=== PATIENT | male | born 1965 | race Caucasian/White ===

== ENCOUNTER → 2021-06-26 14:06 | Outpatient (BNVA) | payer MEDICARE, SELFPAY | PROVIDERS: Visit Provider Family Medicine | DX: Z13.220 Encounter for screening for lipoid disorders (principal); Z13.6 Encounter for screening for cardiovascular disorders; I10 Essential (primary) hypertension; E11.40 Type 2 diabetes mellitus with diabetic neuropathy, unspecified; F32.A Depression, unspecified | CPT/HCPCS: 80053; 80061; 83036 ==

== ENCOUNTER → 2021-12-27 08:59 | Outpatient (BNVA) | payer MEDICARE, SELFPAY | PROVIDERS: PCP Family Medicine; Visit Provider Family Medicine | DX: Z00.00 Encounter for general adult medical examination without abnormal findings (principal); Z71.89 Other specified counseling; I10 Essential (primary) hypertension; E11.42 Type 2 diabetes mellitus with diabetic polyneuropathy; Z79.4 Long term (current) use of insulin; F33.0 Major depressive disorder, recurrent, mild | CPT/HCPCS: 80053; 83036 ==

== ENCOUNTER → 2022-06-27 09:15 | Outpatient (BNVA) | payer MEDICARE, SELFPAY | PROVIDERS: PCP Family Medicine; Visit Provider Family Medicine | DX: E11.42 Type 2 diabetes mellitus with diabetic polyneuropathy (principal); I10 Essential (primary) hypertension; Z79.4 Long term (current) use of insulin; Z13.220 Encounter for screening for lipoid disorders; Z13.6 Encounter for screening for cardiovascular disorders | CPT/HCPCS: 80053; 80061; 83036 ==

== ENCOUNTER → 2022-12-25 08:58 | Outpatient (BNVA) | payer MEDICARE, SELFPAY | PROVIDERS: PCP Family Medicine; Visit Provider Family Medicine | DX: E11.42 Type 2 diabetes mellitus with diabetic polyneuropathy (principal); Z79.4 Long term (current) use of insulin; I10 Essential (primary) hypertension | CPT/HCPCS: 80053; 83036 ==

== ENCOUNTER → 2023-05-27 08:51 | Outpatient (BNVA) | payer MEDICARE, SELFPAY | PROVIDERS: PCP Family Medicine; Visit Provider Family Medicine | DX: E11.9 Type 2 diabetes mellitus without complications (principal); I10 Essential (primary) hypertension; M62.830 Muscle spasm of back; E11.42 Type 2 diabetes mellitus with diabetic polyneuropathy; Z79.4 Long term (current) use of insulin; Z12.5 Encounter for screening for malignant neoplasm of prostate; F33.0 Major depressive disorder, recurrent, mild | CPT/HCPCS: 80053; 80061; 83036; G0103 ==

== ENCOUNTER → 2023-11-25 08:46 | Outpatient (BNVA) | payer MEDICARE, SELFPAY | PROVIDERS: PCP Family Medicine; Visit Provider Family Medicine | DX: I10 Essential (primary) hypertension (principal); E11.42 Type 2 diabetes mellitus with diabetic polyneuropathy; Z79.4 Long term (current) use of insulin | CPT/HCPCS: 80053; 83036 ==

== ENCOUNTER → 2024-05-13 09:00 | Outpatient (BNVA) | payer MEDICARE, SELFPAY | PROVIDERS: PCP Family Medicine; Visit Provider Family Medicine | DX: E11.42 Type 2 diabetes mellitus with diabetic polyneuropathy (principal); I10 Essential (primary) hypertension; Z79.4 Long term (current) use of insulin; Z12.5 Encounter for screening for malignant neoplasm of prostate | CPT/HCPCS: 80053; 80061; G0103 ==

== ENCOUNTER → 2024-07-02 09:54 | Outpatient (BNVA) | payer MEDICARE, SELFPAY | PROVIDERS: PCP Family Medicine; Visit Provider Student in an Organized Health Care Education/Training Program | DX: Z12.11 Encounter for screening for malignant neoplasm of colon (principal) | CPT/HCPCS: 99024; 99204 ==

== ENCOUNTER 2024-09-15 10:04 | Day surgery (SDC) | payer MEDICARE, SELFPAY ==
[2024-09-15 10:34] VITALS: BP 120/70; PULSE 112; RESP 18; TEMP 36.5; O2SAT 98; BMI 21.5
--- NOTE | 2024-09-15 10:39 | W.PM.OPSFHP ---
Same Day Surgery H&P Indication for Procedure/HPI DATE OF PROCEDURE: September 15, 2024 CHIEF COMPLAINT/INDICATIONFOR SURGICAL PROCEDURE: diagnostic colonoscopy PREOP DIAGNOSIS: diagnostic colonoscopy PLANNED PROCEDURE: Operation Date: 09/15/24 11:30 Proposed Procedures p Colonoscopy - 00974, G0105, Z12.11(Not Applicable) - Jaquan Rashid MD Medications/Allergies* Home Medications Medication Instructions Recorded Confirmed Type risperidone 2 mg tablet 2 mg PO DAILY PRN Restless Leg(S) 09/10/24 09/10/24 History risperidone 4 mg tablet 4 mg PO BEDTIME 09/10/24 09/10/24 History Allergies/Adverse Reactions Allergy/AdvReac Type Severity Reaction Status Date / Time No Known Allergies Allergy Verified 09/15/24 10:32 Pertinent History/Comorbid Conditions* Medical History (Updated 05/13/24 @ 15:17 by Nuzhat Bacon MD) Hypertension Type 2 diabetes mellitus failed oral in past Diabetic neuropathy Depression Surgical History (Updated 06/26/21 @ 14:05 by Nuzhat Bacon MD) History of lung surgery drain tube placement 2017 Family History (Updated 07/02/24 @ 10:05 by LAURYN Paz) Heart disease Father Social History Smoking and tobacco/nicotine status: current every day tobacco/nicotine user cigarettes Packs smoked per day: 1 Quit status (tobacco/nicotine): considering quitting Pertinent Exam Findings alert, oriented x 3, clear to auscultation bilaterally, regular rate & rhythm and procedure specific exam findings abdomen soft, nt, nd Recommendations Surgery/Procedure today Coding Level of Care Code Acute Code for Chg Fwd
[2024-09-15] MEDS: sodium chloride 0.9% 500 ML 15 ML IV (10:43)
[2024-09-15 11:01] LABS: Glucose Point of Care 324 mg/dL (70-110)
[2024-09-15] MEDS: insulin regular-human 100 units/1 mL 10 UNIT IVP (11:29)
--- NOTE | 2024-09-15 11:33 | ANES.PREANE2 ---
Pre-Anesthetic Assessment Height/Weight: Height 5 ft 10 in Weight 150 lb Temp Pulse Resp BP Pulse Ox O2 Del Method 97.7 F 112 H 18 120/70 98 Room Air 09/15/24 10:34 09/15/24 10:34 09/15/24 10:34 09/15/24 10:34 09/15/24 10:34 09/15/24 10:34 Preop Diagnosis: diagnostic colonoscopy Operation Date: 09/15/24 11:30 Proposed Procedures p Colonoscopy - 99364, G0105, Z12.11(Not Applicable) - Jaquan Rashid MD Was Beta Luis taken within 24 hours: N/A Was Clonidine taken within 24 hours: N/A Social Tobacco and No alcohol Exam alert, oriented x 3 and regular rate & rhythm Decreased breath sounds bilaterally Airway Submandibular: within normal limits Cervical ROM: within normal limits Mallampati: Class II Dentition: full Anesthetic Plan ASA status: 3 Anesthesia: MAC Other: No prior issues with anesthesia Completed bowel prep History of diabetes, on insulin. Preop BS 324. Will give 10 units of regular insulin History of hypertension on lisinopril and metoprolol Patient takes risperidone at bedtime Patient is able to perform ADLs Plan for MAC anesthetic Medications/Allergies Home Medications Medication Instructions Recorded Confirmed Last Taken Type blood-glucose meter #1 ea 04/20/24 07/02/24 09/14/24 Rx bupropion HCl 300 mg 24 hr tablet, 300 mg PO QAM 30 days #30 tabs 05/13/24 09/10/24 09/14/24 Rx extended release gabapentin 400 mg capsule 400 mg PO TID 30 days #90 caps 05/13/24 09/10/24 09/14/24 Rx insulin glargine 100 unit/mL (3 32 unit (0.32 mL) SUBCUT DAILY #15 05/13/24 09/10/24 09/14/24 Rx mL) subcutaneous pen (Lantus mL Solostar U-100 Insulin) lisinopril 40 mg tablet 40 mg PO DAILY 30 days #30 tabs 05/13/24 09/10/24 09/14/24 Rx metoprolol succinate 100 mg 100 mg PO DAILY 30 days #30 tabs 05/13/24 09/15/24 09/15/24 07:00 Rx tablet,extended release 24 hr tizanidine 2 mg tablet 2 mg PO Q8H PRN muscle spasticity 05/13/24 09/10/24 09/14/24 Rx #30 tabs albuterol sulfate 90 mcg/actuation 2 puff inhalation QID PRN 06/18/24 09/10/24 09/14/24 Rx aerosol inhaler shortness of breath or wheezing 30 days #18 grams pen needle, diabetic 32 gauge x #1,200 ea 08/28/24 09/14/24 Rx (Easy Comfort Pen [place]) risperidone 2 mg tablet 2 mg PO DAILY PRN Restless Leg(S) 09/10/24 09/10/24 09/14/24 History risperidone 4 mg tablet 4 mg PO BEDTIME 09/10/24 09/10/24 09/14/24 History Allergies Allergy/AdvReac Type Severity Reaction Status Date / Time No Known Allergies Allergy Verified 09/15/24 10:32 Current Medications Generic Name Dose Route Start Last Admin Trade Name Freq PRN Reason Stop Dose Admin Sodium Chloride 500 mls @ 15 mls/hr 09/15/24 10:27 09/15/24 10:43 Sodium Chloride 0.9% IV 09/16/24 10:26 15 mls/hr .Q24H PRN Administration COLONOSCOPY FLUIDS PFSH Anesthesia Medical History Hypertension Type 2 diabetes mellitus failed oral in past Diabetic neuropathy Depression Surgical History History of lung surgery drain tube placement 2016 Family History (Updated 07/02/24 @ 10:05 by LAURYN Paz) Father Heart disease Social History Smoking and tobacco/nicotine status: current every day tobacco/nicotine user cigarettes Packs smoked per day: 1 Quit status (tobacco/nicotine): considering quitting Data Anesthesia Cardiac Studies: No Data to Display
[2024-09-15 12:08] LABS: Glucose Point of Care 227 mg/dL (70-110)
[2024-09-15 12:24] VITALS: BP 104/73; PULSE 87; RESP 14; TEMP 36.3; O2SAT 98
[2024-09-15 12:30] VITALS: BP 111/71; PULSE 86; RESP 14; O2SAT 93
[2024-09-15 12:40] VITALS: BP 119/75; PULSE 84; RESP 14; O2SAT 94
--- NOTE | 2024-09-15 13:06 | ANE.PACU2 ---
Inpatient post-anesthesia follow up: Airway intact: Yes Vital signs: Temperature 97.4 F Pulse Rate 84 Respiratory Rate 14 Blood Pressure 119/75 Pulse Oximetry 94 Oxygen Delivery Me thod Room Air Oxygen Flow Rate Fraction of Inspir ed Oxygen Hydration adequate: Yes Nausea and vomiting: No Pain level: 1 Mental status: Baseline
[2024-09-16 06:09] LABS: Glucose Point of Care 129 mg/dL (70-110)
== END 2024-09-15 13:06 | disposition home or self-care (01) ==
PROVIDERS: PCP Family Medicine; Visit Provider Student in an Organized Health Care Education/Training Program
PROC: 0DJD8ZZ Inspection of Lower Intestinal Tract, Via Natural or Artificial Opening Endoscopic (ICD-10-PCS; CPT 45378; principal; 2024-09-15 11:30)
DX: R19.5 Other fecal abnormalities (principal); E11.42 Type 2 diabetes mellitus with diabetic polyneuropathy; Z79.4 Long term (current) use of insulin; I10 Essential (primary) hypertension; F32.A Depression, unspecified; F17.210 Nicotine dependence, cigarettes, uncomplicated
CPT/HCPCS: 36416; 45378; 82962; J1815; J2405; J2704; J3490; J7040

== ENCOUNTER → 2024-10-27 08:56 | Outpatient (BNVA) | payer MEDICARE, SELFPAY | PROVIDERS: PCP Family Medicine; Visit Provider Family Medicine | DX: E11.42 Type 2 diabetes mellitus with diabetic polyneuropathy (principal); Z79.4 Long term (current) use of insulin; E11.9 Type 2 diabetes mellitus without complications | CPT/HCPCS: 80048; 83036 ==

== ENCOUNTER 2025-01-27 07:49 | Outpatient (CLI) | payer MEDICARE, SELFPAY ==
--- NOTE | 2025-01-27 07:59 | FL_ITS ---
WS: [id number] FL barium enema w air* [id number] REASON FOR EXAM: INCOMPLETE COLONOSCOPY FLUOROSCOPY TIME: 8min [id number] # OF SPOT FILMS: Multiple TECHNIQUE: After reviewing patient history and records, air-contrast barium enema was not indicated. There was concern for constriction/partial obstruction, incomplete colonoscopy. It was more likely a solid colon barium enema would visualize the entire colon and define constriction or obstruction. Contrast was instilled per rectum with multiple spot films during the colonic filling. After the colon was filled multiple spot films with compression were obtained. All sections of the colon were palpated under fluoroscopy. FINDINGS: Patient had moderately redundant sigmoid colon and episodes of spasm. No constricting intrinsic or extrinsic lesion of the colon was identified. There is no significant diverticular disease with colonic narrowing. No mucosal abnormality or intraluminal mass was identified. Ileocecal valve and visualized small bowel were normal. FL/FL barium enema w air* [id number] IMPRESSION: No significant abnormality as above.
== END 2025-01-27 07:50 | disposition home or self-care (01) ==
PROVIDERS: PCP Family Medicine; Visit Provider Student in an Organized Health Care Education/Training Program
DX: Z12.11 Encounter for screening for malignant neoplasm of colon (principal); R93.89 Abnormal findings on diagnostic imaging of other specified body structures
CPT/HCPCS: 74280

== ENCOUNTER → 2025-01-28 09:08 | Outpatient (BNVA) | payer MEDICARE, SELFPAY | PROVIDERS: PCP Family Medicine; Visit Provider Family Medicine | DX: E11.42 Type 2 diabetes mellitus with diabetic polyneuropathy (principal); R41.3 Other amnesia; R53.83 Other fatigue; Z79.4 Long term (current) use of insulin | CPT/HCPCS: 82607; 82746; 83036; 84443 ==

== ENCOUNTER → 2025-04-12 09:04 | Outpatient (BNVA) | payer MEDICARE, SELFPAY | PROVIDERS: PCP Family Medicine; Visit Provider Family Medicine | DX: Z12.5 Encounter for screening for malignant neoplasm of prostate (principal); I10 Essential (primary) hypertension; E11.42 Type 2 diabetes mellitus with diabetic polyneuropathy; Z79.4 Long term (current) use of insulin | CPT/HCPCS: 80053; 80061; 83036; G0103 ==

== ENCOUNTER 2025-06-29 17:40 | Inpatient (IN) | payer MEDICARE, SELFPAY ==
[2025-06-29] VITALS (7 sets, daily range): BP systolic 93–139; BP diastolic 54–74; PULSE 94–103; RESP 16–17; TEMP 36.4–36.8; O2SAT 93–98; BMI 21.5
--- OUTSIDE RECORDS SUMMARY | 2025-06-29 17:43 | XMS_ITS | Clinical Summary ---
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 Name Role Phone Unavailable Primary Care Provider Unavailabl e Social History Tobacco Use Types Packs/Day Years Used Date Smoking Tobacco: Never Assessed Sex and Gender Information Value Date Recorded Sex Assigned at Not on file Legal Sex Male 6:23 PM CDT Gender Identity Not on file Sexual Orientation Not on file Plan of Treatment Health Maintenance Due Date Last Done Comments DTAP/TDAP/TD VACCINES (1 - Tdap) 1982 COLORECTAL SCREENING 2008 Colorectal Cancer Screening 2008 FIT-DNA Q 3 years 2008 FIT/FOBT Q 1 year 2008 Flex Sig/CT Colonography Q 5 years 2008 ZOSTER VACCINE (1 of 2) 2013 INFLUENZA VACCINE (#1) 2025 RSV VACCINE (60+ or ) (1 - 1-dose 75+ series) 2038
[2025-06-29 18:55] LABS: Hematocrit 43.0 % (37-53); Hemoglobin 15.50 g/dL (11.27-16.99); Mean Corpuscular HGB Conc 36.0 g/dL (30-55); Mean Corpuscular Hemoglobin 32.0 pg (27-33); Mean Corpuscular Volume 88.7 fl (82-101); Nucleated Red Blood Cells % 0 %; Platelet Count 252 10^3/cmm (157-399); Red Blood Count 4.85 10^6/uL (3.85-5.65); White Blood Count 12.94 10^3/uL (3.29-11.43)
[2025-06-29 19:15] LABS: Alanine Aminotransferase 19 U/L (0-41); Albumin Level 4.7 g/dL (3.5-5.2); Alkaline Phosphatase 81 U/L (40-130); Anion Gap 21.1 (5-19); Aspartate Amino Transferase 21 U/L (0-40); Blood Urea Nitrogen 69 mg/dL (8-23); Calcium 10.4 mg/dL (8.5-10.5); Carbon Dioxide 27 mmol/L (22-29); Chloride 89 mmol/L (98-107); Creatinine Clr Calc Pharmacy 15.4600; Globulin 3.3 g/dL (1.3-4.6); Glucose 160 mg/dL (65-115); Lactic Sepsis W/Reflex 1.6 mmol/L (0.5-2.2); Osmolality Calculated 300 mOsm/kg (285-295); Potassium 4.1 mmol/L (3.5-5.1); Sodium 133 mmol/L (136-145); Total Protein 8.0 g/dL (6.6-8.7)
--- NOTE | 2025-06-29 19:27 | ED_ITS ---
HPI - Male Genitourinary 2 General: Chief complaint: Urogenital-Male Stated complaint: trouble urinating Time Seen by Provider: 06/29/25 19:24 History of Present Illness: 60-year-old male with history of type 2 diabetes, depression, diabetic neuropathy, hypertension and chronic bronchitis who presents to the emergency room with difficulty urinating and low blood pressures. He was actually told to come by clinic I find out later. He had lab work and that showed an acute renal insufficiency. He reports that he had some nausea and vomiting a couple of days ago. He then had to take some laxative which caused him to have some diarrhea because he thought he was constipated. No abdominal pain. No fevers. No altered mental status. Related Data Home Medications ?Medication ?Instructions ?Recorded ?Confirmed risperidone 2 mg tablet 2 mg PO DAILY PRN Restless L eg(S) 09/10/24 06/29/25 risperidone 4 mg tablet 4 mg PO BEDTIME 09/10/2412/18 Previous Rx's ?Medication ?Instructions ?Recorded blood-glucose meter #1 ea 04/20/24 pen needle, diabetic 32 gauge x #1,200 ea 08/28/24 (Easy Comfort Pen [place]) blood-glucose meter #1 ea 11/19/24 magnesium citrate 296 ml PO ONCE constipation 1 day 01/25/25 #296 mL lancets 30 gauge (Droplet Lancets) #100 ea 03/24/25 blood sugar diagnostic (OneTouch #100 strips 03/29/25 Ultra Test strips) albuterol sulfate 90 mcg/actuation 2 puff inhalation Q ID PRN 04/12/25 aerosol inhaler shortness of breath or wheez ing 30 days #18 grams bupropion HCl 300 mg 24 hr tablet, 300 mg PO QAM 30 da ys #30 tabs 04/12/25 extended release gabapentin 400 mg capsule 400 mg PO TID 30 days #90 ca ps 04/12/25 insulin glargine 100 unit/mL (3 40 unit (0.4 mL) SUBCU T DAILY #15 04/12/25 mL) subcutaneous pen (Lantus mL Solostar U-100 Insulin) lisinopril 40 mg tablet 40 mg PO DAILY 30 days #30 t abs 04/12/25 metoprolol succinate 100 mg 100 mg PO DAILY 30 days #3 0 tabs 04/12/25 tablet,extended release 24 hr tizanidine 2 mg tablet See Rx Instructions .Route 0 04/12/25 .COMPLEX #30 tabs Allergies Allergy/AdvReac Type Severity Reaction Status Date / Time No Known Allergies Allergy Verified 06/29/25 17:58 Review of Systems 2 Narrative: Constitutional symptoms: Negative except as documented in HPI. Skin symptoms: Negative except as documented in HPI. Eye symptoms: Negative except as documented in HPI. ENMT symptoms: Negative except as documented in HPI. Respiratory symptoms: Negative except as documented in HPI. Cardiovascular symptoms: Negative except as documented in HPI. Gastrointestinal symptoms: Negative except as documented in HPI. Genitourinary symptoms: Negative except as documented in HPI. Musculoskeletal symptoms: Negative except as documented in HPI. Neurologic symptoms: Negative except as documented in HPI. Psychiatric symptoms: Negative except as documented in HPI. Endocrine symptoms: Negative except as documented in HPI. PFS ED 2 PFSH: Medical History (Updated 06/29/25 @ 20:05 by Latricia Augustine MD) Hypertension Type 2 diabetes mellitus failed oral in past Diabetic neuropathy Depression Surgical History History of lung surgery drain tube placement 2017 Family History Father Heart disease Social History Smoking and tobacco/nicotine status: current every day tobacco/nicotine user cigarettes Packs smoked per day: 1 Quit status (tobacco/nicotine): considering quitting Physical Exam 2 Narrative: EXAM NARRATIVE: General: Alert, no acute distress. Skin: Warm, dry. Head: Normocephalic, atraumatic. Neck: Supple, trachea midline. Eye: Extraocular movements are intact. Ears, nose, mouth and throat: Tacky oral mucosa Cardiovascular: Regular, Normal peripheral perfusion. Respiratory: Lungs are clear to auscultation, respirations are non-labored, breath sounds are equal, Symmetrical chest wall expansion. Gastrointestinal: Soft, Nontender, Non distended Musculoskeletal: Normal ROM, no deformity. Neurological: Alert and oriented, No focal neurological deficit observed. Psychiatric: Cooperative, appropriate mood & affect. Course 2 Vital Signs: Vital signs: Vital Signs Temperature 97.5 F L 06/29/25 17:55 Pulse Rate 94 06/29/25 20:03 Respiratory Rate 17 06/29/25 17:55 Blood Pressure 114/74 06/29/25 20:03 Pulse Oximetry 97 06/29/25 20:03 Oxygen Delivery Me thod Room Air 06/29/25 20:03 MDM - Male Medical Decision Making Medical decision making: Patient's reason for coming to the emergency room Social determinants: Patient is retired and . I reviewed the patient's medical record. Patient had a visit to a clinic earlier today lab work was done at that time. Was then told to come to the emergency room. 60-year-old male with history of type 2 diabetes, depression, diabetic neuropathy, hypertension and chronic bronchitis I reviewed the patient's current home meds Patient is on insulin for his diabetes. Metoprolol for blood pressure. He is on lisinopril. Alternate historians: is present and does give some history as well. Differential diagnosis for patient presenting with generalized weakness including but not limited to and based on the above HPI, review of systems and physical exam: Sepsis. Dehydration. Renal failure. Electrolyte abnormalities. Anemia. Congestive heart failure. Hypotension. Coronary syndrome. Hepatitis. Cirrhosis. Infections such as pneumonia, urinary tract infection, [place] illness, Cellulitis, Viral infections including influenza and Covid-19. Workup: labwork and lab/exam driven imaging ordered to evaluate, rule in and rule out above pathologies. Lab Review: Laboratory results were reviewed and interpreted by myself the emergency room physician. Mild leukocytosis with a white count of 13,000. This is not left shifted however. Lactic acid is negative. Liver enzymes are normal. BUN and creatinine are extremely elevated over his baseline at 69 and 4.9. Glucose is not overtly elevated it is 160. CT of the abdomen pelvis without contrast: This was ordered to rule out obstructive uropathy. This was negative. This was reviewed and interpreted by myself the emergency room physician. I also reviewed the radiology report. Assessment of risk: Level of risk: High risk patient. Diabetes and other multiple risk factors with acute renal failure. Hospitalization considerations: Patient is being admitted to the hospital Reexamination: Patient remained stable. No increased work of breathing. No altered mental status. No focal motor deficits. Consultation: I spoke with Dr. Caruso with the hospital service who agrees to admission. Assessment and plan: Acute renal failure Dehydration Hypotension Weakness ? This may very well all be just from dehydration from may be a gastroenteritis but he has a bit of a white count and is pressures are low. We have not been able to collect a urine thus far as he has not made any so treating empirically for sepsis for now. He needs the fluid anyway. -2.5 L normal saline bolus. Fluid volumes based on ideal body weight. - Rocephin was administered empirically. This can be stopped if his urine proves to not be infected. -Sepsis quality measures. -Lactic acid with a reflex was ordered. -Blood cultures were ordered. ?I reevaluated the patient's volume status after sepsis fluids were given. -I discussed the patient with the hospitalist on-call who is admitting the patient. - Discussed findings and plan with patient. Answered any questions. - All laboratory values were reviewed and interpreted personally by myself, the ER physician - All imaging was reviewed and interpreted personally by myself, the ER physician. - Evaluation and treatment of this problem were appropriate in the emergency setting Critical Care: -I spent a total of 36 minutes of critical care time managing the patient, independent of any other practitioner. -The time involved in the performance of separately reportable procedures was not counted towards critical care time. Lab Data 06/29/25 18:46 06/29/25 18:46 Radiology Impressions Abdomen/Pelvis CT 06/29/25 19:28 IMPRESSION: No acute localized inflammatory abnormalities present abdomen and pelvis Findings of a calcified nodule in the central canal towards the left at T12 causes significant central canal stenosis further workup recommended with dedicated thoracic spine imaging recommended and such as meningioma can not be excluded and warrants further workup to Laboratory Results WBC 12.94 10^3/uL (3.29-11.43) H 06/29/25 18:46 RBC 4.85 10^6/uL (3.85-5.65) 06/29/25 18:46 Hgb 15.50 g/dL (11.27-16.99) 06/29/25 18:46 Hct 43.0 % (37-53) 06/29/25 18:46 MCV 88.7 fl (82-101) 06/29/25 18:46 MCH 32.0 pg (27-33) 06/29/25 18:46 MCHC 36.0 g/dL (30-55) 06/29/25 18:46 RDW 12.2 % (12.1-15.1) 06/29/25 18:46 Plt Count 252 10^3/cmm (157-399) 06/29/25 18:46 MPV 11.5 fL (7.4-10.4) H 06/29/25 18:46 Neut % (Auto) 72.2 % 06/29/25 18:46 Lymph % (Auto) 19.9 % 06/29/25 18:46 [place] % (Auto) 7.1 % 06/29/25 18:46 Eos % (Auto) 0.3 % 06/29/25 18:46 Baso % (Auto) 0.2 % 06/29/25 18:46 Neut # (Auto) 9.35 10^3/uL (1.8-7.7) H 06/29/25 18:46 Lymph # (Auto) 2.6 10^3/uL (0.8-4.8) 06/29/25 18:46 [place] # (Auto) 0.9 10^3/uL (0.2-0.9) 06/29/25 18:46 Eos # (Auto) 0.0 10^3/uL (0.0-0.8) 06/29/25 18:46 Baso # (Auto) 0.0 10^3/uL (0.0-0.1) 06/29/25 18:46 Nucleated RBC % (auto) 0 % 06/29/25 18:46 Nucleated RBCs # 0.0 /100WBC 06/29/25 18:46 Sodium 133 mmol/L (136-145) L 06/29/25 18:46 Potassium 4.1 mmol/L (3.5-5.1) 06/29/25 18:46 Chloride 89 mmol/L (98-107) L 06/29/25 18:46 Carbon Dioxide 27 mmol/L (22-29) 06/29/25 18:46 Anion Gap 21.1 (5-19) H 06/29/25 18:46 BUN 69 mg/dL (8-23) H 06/29/25 18:46 Creatinine 4.9 mg/dL (0.7-1.2) H 06/29/25 18:46 GFR Calculation 12.1 mL/min (90-130) L 06/29/25 18:46 Glucose 160 mg/dL (65-115) H 06/29/25 18:46 Calculated Osmolality 300 mOsm/kg (285-295) H 06/29/25 18:46 Lactic Acid 1.6 mmol/L (0.5-2.2) 06/29/25 18:46 Calcium 10.4 mg/dL (8.5-10.5) 06/29/25 18:46 Total Bilirubin 0.6 mg/dL (0.15-1.2) 06/29/25 18:46 AST 21 U/L (0-40) 06/29/25 18:46 ALT 19 U/L (0-41) 06/29/25 18:46 Alkaline Phosphatase 81 U/L (40-130) 06/29/25 18:46 Total Protein 8.0 g/dL (6.6-8.7) 06/29/25 18:46 Albumin 4.7 g/dL (3.5-5.2) 06/29/25 18:46 Globulin 3.3 g/dL (1.3-4.6) 06/29/25 18:46 All radiology interpretation(s) finalized by discharge Discharge Plan Discharge Patient Disposition: Admitted As Inpatient Admit Provider: Katlin Caruso Clinical Impression: Acute renal failure, Dehydration Condition: Stable Coding Level of Care Code ED [employer] Diagnostic Technician for Talisha Triana
--- NOTE | 2025-06-29 19:28 | CTR_ITS ---
PROCEDURE INFORMATION: Exam: CT Abdomen And Pelvis Without Contrast Exam date and time: 06/29/2025 7:33 PM Age: 60 years old Clinical indication: Condition or disease; Kidney or ureter condition; Other: Renal failure, R/O obstructive uropathy; PT C/O dysuria x few days. PT states that his Dr told him that his kidneys are failing. TECHNIQUE: Imaging protocol: Computed tomography of the abdomen and pelvis without contrast. Radiation optimization: All CT scans at this facility use at least one of these dose optimization techniques: automated exposure control; mA and/or kV adjustment per patient size (includes targeted exams where dose is matched to clinical indication); or iterative reconstruction. COMPARISON: RF FL barium enema w air* [id number] 01/27/2025 8:09 AM RADIATION DOSE METRICS: Total DLP (mGy-cm): 378.77 FINDINGS: Heart: There are findings of mitral annular coronary artery calcification is present Liver: Unremarkable. No mass. Gallbladder and biliary ducts: Unremarkable. No calcified stones. No ductal dilation. Pancreas: Unremarkable. No ductal dilation. Spleen: Unremarkable. No splenomegaly. Adrenal glands: Normal. No mass. Kidneys and ureters: There is no obstructing stone or hydronephrosis Stomach and bowel: Bowel demonstrates no obstruction. There is mild constipation Appendix: Appendix is normal Intraperitoneal space: There is no intra abdominopelvic free air or free fluid present. Vasculature: Unremarkable. No abdominal aortic aneurysm. Lymph nodes: Unremarkable. No enlarged lymph nodes. Urinary bladder: Urinary bladder unremarkable. Reproductive: Unremarkable as visualized. Bones/joints: In the central canal T12 there is demonstration of a calcified nodule measuring 9 mm causes significant central canal stenosis at this level on image 20, further evaluation recommended with dedicated thoracic spine imaging. Soft tissues: Unremarkable. Other findings: There is a right midpole [address]/CT abdomen pelvis wo con [id number] IMPRESSION: No acute localized inflammatory abnormalities present abdomen and pelvis Findings of a calcified nodule in the central canal towards the left at T12 causes significant central canal stenosis further workup recommended with dedicated thoracic spine imaging recommended and such as meningioma can not be excluded and warrants further workup to
[2025-06-29] MEDS: cefTRIAXone 1,000 mg SDV 1000 MG IVP (19:51)
--- NOTE | 2025-06-29 23:56 | PM.HP ---
Providers/Chief Complaint Admitting Physician: Katlin Caruso MD--- admitED before midnight Primary Care Provider: Nuzhat Bacon MD Chief Complaint: trouble urinating History of Present Illness Richard Woodson is a 60 year old male with medical history significant for hypertension hyper lipidemia and diabetes type 2 who had presented to the primary care doctor chemistry proven to be abnormal and patient was referred to the emergency room to be evaluated. Patient presented with a BUN of 69 and creatinine of 4.9. Patient baseline creatinine has been 1. 04/12/2025 patient creatinine was 1. Patient needs gentle hydration to not stick kidney back to health. Patient tells me that he was not drinking enough. In review of patient medication I do not see any diuretics neither did I see any medication that can compromise the kidney. Must keep any medication renal friendly Review of Systems Narrative: System review upon 10 organ review we are significant for urinary system for renal failure. Medications/Allergies Home Medications ?Medication ?Instructions ?Recorded ?Confirmed ?Last Taken ?Type blood-glucose meter #1 ea 04/20/24 06/29/25 09/14/24 Rx pen needle, diabetic 32 gauge x #1,200 ea 08/28/24 06/29/25 09/14/24 Rx 5/32 (Easy Comfort Pen [place]) risperidone 2 mg tablet 2 mg PO DAILY PRN Restless Leg(S) 09/10/24 06/29/25 09/14/24 History risperidone 4 mg tablet 4 mg PO BEDTIME 09/10/24 06/29/25 09/14/24 History blood-glucose meter #1 ea 11/19/24 06/29/25 Unknown Rx magnesium citrate 296 ml PO ONCE constipation 1 day 01/25/25 06/29/25 Unknown Rx #296 mL lancets 30 gauge (Droplet Lancets) #100 ea 03/24/25 06/29/25 Unknown Rx blood sugar diagnostic (OneTouch #100 strips 03/29/25 06/29/25 Unknown Rx Ultra Test strips) albuterol sulfate 90 mcg/actuation 2 puff inhalation QID PRN 04/12/25 06/29/25 Unknown Rx aerosol inhaler shortness of breath or wheezing 30 days #18 grams bupropion HCl 300 mg 24 hr tablet, 300 mg PO QAM 30 days #30 tabs 04/12/25 06/29/25 Unknown Rx extended release gabapentin 400 mg capsule 400 mg PO TID 30 days #90 caps 04/12/25 06/29/25 Unknown Rx insulin glargine 100 unit/mL (3 40 unit (0.4 mL) SUBCUT DAILY #15 04/12/25 06/29/25 Unknown Rx mL) subcutaneous pen (Lantus mL Solostar U-100 Insulin) lisinopril 40 mg tablet 40 mg PO DAILY 30 days #30 tabs 04/12/25 06/29/25 Unknown Rx metoprolol succinate 100 mg 100 mg PO DAILY 30 days #30 tabs 04/12/25 06/29/25 Unknown Rx tablet,extended release 24 hr tizanidine 2 mg tablet See Rx Instructions .Route 04/12/25 06/29/25 Unknown Rx .COMPLEX #30 tabs Allergies Allergy/AdvReac Type Severity Reaction Status Date / Time No Known Allergies Allergy Verified 06/29/25 17:58 PFSH Acute PFSH: Medical History Hypertension Type 2 diabetes mellitus failed oral in past Diabetic neuropathy Depression Surgical History History of lung surgery drain tube placement 2017 Family History Father Heart disease Social History Smoking and tobacco/nicotine status: current every day tobacco/nicotine user cigarettes Packs smoked per day: 1 Quit status (tobacco/nicotine): considering quitting Vitals/I&O/Wt Last Vital Signs Temp 97.5 F L 06/29/25 17:55 Pulse 99 06/29/25 21:20 Resp 17 06/29/25 17:55 BP 129/65 06/29/25 21:20 Pulse Ox 94 06/29/25 21:20 O2 Del Method Room Air 06/29/25 21:19 06/29/25 06/29/25 06/30/25 14:59 22:59 06:59 Intake Total 1999 Balance 1999 Weight last 48 hrs Weight 68.13 kg Weight 65.317 kg Physical Exam Narrative: Patient is relaxed in bed in no apparent distress verbalized that he is doing well HEENT normocephalic/atraumatic neck neck is supple cardiovascular heart rate is regular lungs are pretty much clear abdomen soft nontender nondistended unremarkable extremities are intact no edema has good pulses neurology has no focality lab studies lab studies reviewed and noted. White count elevated at 12.9 Patient did not void in the emergency room at the time of case discussion with the emergency room attending who told me that he had ordered for urinalysis and none was obtained and he gave antibiotics coverage for it. Patient with a creatinine of 5 not voiding need to have a Pickard catheter in. Must optimize this result. Pickard catheter be placed urinalysis be sent. CT of the abdomen and pelvics did not show any hydronephrosis no hydroureter or any renal stones Data 06/29/25 18:46 06/29/25 18:46 Micro: Microbiology 06/29/25 18:46 Blood Culture - Preliminary Blood SPECIMEN COLLECTED 06/29/25 18:46 Blood Culture - Preliminary Blood SPECIMEN COLLECTED A&P Assessment and plan 1. ATN (acute tubular necrosis): 2. Dehydration: 3. Acute renal failure: 4. Hypotension: 5. Simple chronic bronchitis: 6. Hypertension: 7. Type 2 diabetes mellitus: Plan: Acute tubular necrosis -Admit to general medical floor - Patient has received 2.5 L of fluid prior to coming to medical floor - I will continue with a gentle hydration at 100 mL/h normal saline - Pickard was not placed in the ED patient voided 500 mL of urine upon arriving to medical floor - And had voided more since then - Urinalysis was just been sent result pending - Ceftriaxone had been empirically ordered by the ED attending while patient was in the emergency room as remained that patient might have urinary tract infection - May continue ceftriaxone should the patient have UTI and if it does not this should be discontinued. - It is worth noting that CT of the abdomen and pelvics were done there are no hydronephrosis no hydroureter and no stones. Presumptive UTI - Patient was started on ceftriaxone in the emergency room for a presumptive UTI because of renal failure. - If no UTI antibiotics be discontinued Dehydration - Gentle hydration at this time with normal saline - Monitor electrolyte imbalances and optimize accordingly GI and DVT prophylaxis in place Chronic medical disorder such as diabetes/hypertension/ PDMP PDMP Reviewed: Last Reviewed 06/30/25 04:57 by Katlin Caruso MD Attestations Medical Necessity Statement*: Patient has acute tubular necrosis and will need at least 2 midnights for optimization of care Coding Level of Care Code Acute Code for Chg Fwd Diagnoses ATN (acute tubular necrosis) N17.0 Dehydration E86.0 Acute renal failure N17.9 Hypotension I95.9 Simple chronic bronchitis J41.0 COPD type: chronic bronchitis Chronic bronchitis type: simple Hypertension I10 Type 2 diabetes mellitus E11.9 Time Spent (min) 60
[2025-06-30] VITALS (10 sets, daily range): BP systolic 101–167; BP diastolic 65–90; PULSE 80–105; RESP 16–18; TEMP 36.5–36.9; O2SAT 93–98
[2025-06-30 02:30] LABS: Glucose Urine UA 2+ (Normal); Nitrate Urine Negative (Negative); Specific Gravity, Urine 1.021 (1.005-1.030)
[2025-06-30 02:56] LABS: UA Slide Review UA Slide Review Perf
[2025-06-30] MEDS: heparin 5,000 unit/mL INJ 1 mL 5000 UNIT SUBCUT ×3 (04:47→20:43)
[2025-06-30 06:13] LABS: Alanine Aminotransferase 16 U/L (0-41); Albumin Level 3.6 g/dL (3.5-5.2); Alkaline Phosphatase 63 U/L (40-130); Anion Gap 13.1 (5-19); Aspartate Amino Transferase 20 U/L (0-40); Blood Urea Nitrogen 48 mg/dL (8-23); Calcium 8.2 mg/dL (8.5-10.5); Carbon Dioxide 26 mmol/L (22-29); Chloride 103 mmol/L (98-107); Creatinine Clr Calc Pharmacy 36.6538; Globulin 2.3 g/dL (1.3-4.6); Glucose 228 mg/dL (65-115); Magnesium 2.0 mg/dL (1.7-2.3); Osmolality Calculated 306 mOsm/kg (285-295); Potassium 4.1 mmol/L (3.5-5.1); Sodium 138 mmol/L (136-145); Total Protein 5.9 g/dL (6.6-8.7)
--- NOTE | 2025-06-30 08:05 | US_ITS ---
WS: [id number] ULTRASOUND RENAL TECHNIQUE: Ultrasound examination of both kidneys. CLINICAL INFORMATION: natali COMPARISON: None. FINDINGS: RIGHT: Right kidney is normal in size and appearance. Echogenicity: Normal. Cortical thickness: 1.1 cm; Normal. Hydronephrosis: None. Perinephric fluid: None. Right kidney measures: 9.9 cm x 5.5 cm x 5.1 cm. LEFT: Left kidney is normal in size and appearance. Echogenicity: Normal. Cortical thickness: 1.6 cm; Normal. Hydronephrosis: None. Perinephric fluid: None. Left kidney measures: 11.1 cm x 4.8 cm x 4.5 cm. Normal visualized aorta. Enlarged prostate. US/US renal BI* [id number] IMPRESSION: 1. No hydronephrosis in either kidney. 2. Bladder is normal in appearance. 3. Enlarged prostate measuring 5.8 x 3.5 x 4.6 cm. Recommend correlation PSA.
[2025-06-30] MEDS: insulin glargine 100 units/1 mL 20 UNIT SUBCUT (08:28)
--- NOTE | 2025-06-30 09:32 | PC.CHAP ---
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 visit [] Patient/Family/Request visit [] Outpatient visit [] Follow-up visit [] Physician referral [] Code/Alert [x] Routine visit [] Staff referral [] Actively dying [] Patient sleeping [] Family support [] [] Out of room [] Palliative care [] [] Receiving care in room [] Pre-surgical visit [] Trauma [] Long length of stay [] ICU visit [] Other: Relational/Emotional Strength [x] Patient feels connected with others/family/visitors/staff [] Distress [] Loneliness/isolation [] Abandonment Spirituality of Patient [x] Person of [place] [] Attends Orthodox of their [place] [x] Believes in Prayer [] Reads Bible or Evangelical materials [] There are Spiritual issues to be addressed Banana Expert Interventions [x] Prayer [] Active listening [x] Non-anxious presence [x] Spiritual/emotional support [] Crisis/trauma care [] Spiritual counseling [] Bereavement support [] Provided bereavement packet [] Provided Bible/devotional materials [] Provided toy/stuffed animal, coloring book to patient or family member [] Provided Communion [] Anointing/[place] [] Salvation [x] Completed spiritual assessment [] Other: Impact on Illness or Injury [] Angry [] Fearful [] Anxious [] Often cries [] Exhaustion [] Unable to work [] Unable to attend protestant [] Unable to walk/stand [] Unable to read [] Unable to drive [] Unable to eat/drink [] Unable to sleep [] Unable to be with family [] Patient intubated [] Other: Summary Time spent with patient 5 min
--- NOTE | 2025-06-30 10:33 | P.CONIM_ITS ---
Providers/Reason For Consult 2 Consulting Physician/Specialty*: izzy ferguson md / telenephrology Reason for Consult*: TRISHA Requesting Physician: DR Connor Attending Physician: Jhon Connor MD Primary Care Provider: Nuzhat Bacon MD History of Present Illness History of Present Illness Richard Woodson is a 60 year old male with history of hyperlipidemia and type 2 diabetes. Patient was admitted with nausea vomiting constipation and inability to urinate. The patient was also diagnosed with acute kidney injury creatinine as high as 4.9 mg/dL that improved overnight with IV fluids and antibiotics. Patient was started on ceftriaxone for presumed UTI. However urinalysis had 25- 40 calcium oxalate crystals 3-5 red cells no significant white cells. Also had hyaline cast. Renal was called to see the patient to ensure there is no further renal abnormalities. Baseline creatinine 1 mg/dL in March 2025. The patient now is feeling better is eating drinking having bowel movements and urinating. Blood pressure has improved. Please note at home he stopped his blood pressure medications for 2 days but he was taking NSAIDs. Review of Systems 2 Narrative: Nausea vomiting weakness lightheadedness dizziness constipation decreased urine output. Denies history of kidney stones or bloody urine no shortness of breath. Rest review of systems reviewed and negative Medications/Allergies Home Medications ?Medication ?Instructions ?Recorded ?Confirmed ?Last Taken ?Type risperidone 2 mg tablet 2 mg PO DAILY PRN Restless L eg(S) 09/10/24 06/30/25 09/14/24 History risperidone 4 mg tablet 4 mg PO BEDTIME 09/10/2401/1706/28/25 History blood sugar diagnostic (OneTouch #100 strips 03/29/25 06/30/25 Unknown Rx Ultra Test strips) albuterol sulfate 90 mcg/actuation 2 puff inhalation Q ID PRN 04/12/25 06/30/25 Unknown Rx aerosol inhaler shortness of breath or wheez ing 30 days #18 grams gabapentin 400 mg capsule 400 mg PO TID 30 days #90 ca ps 04/12/25 06/30/25 06/28/25 Rx lisinopril 40 mg tablet 40 mg PO DAILY 30 days #30 t abs 04/12/25 06/30/25 06/28/25 Rx metoprolol succinate 100 mg 100 mg PO DAILY 30 days #3 0 tabs 04/12/25 06/30/25 06/28/25 Rx tablet,extended release 24 hr bupropion HCl 200 mg tablet,12 hr 200 mg PO BID 06/30/25 06/28/25 History sustained-release insulin glargine 100 unit/mL (3 34 - 38 unit SUBCUT QA M 06/30/25 06/30/25 06/28/25 History mL) subcutaneous pen (Lantus Solostar U-100 Insulin) tizanidine 2 mg tablet 2 mg PO Q8H PRN Muscle Spast icity 06/30/25 06/30/25 Unknown History Allergies Allergy/AdvReac Type Severity Reaction Status Date / Time No Known Allergies Allergy Verified 06/29/25 17:58 Current Medications Generic Name Dose Route Start Last Admin Trade Name Freq PRN Reason Stop Dose Admin Docusate Sodium 100 mg 06/30/25 05:00 06/30/25 04:47 Docusate Sodium 100 Mg Capsule PO 100 mg BID RAUL Administration Heparin Sodium (Porcine) 5,000 unit 06/30/25 05:00 06/30/25 04:47 Heparin 5,000 Unit/Ml Inj 1 Ml SUBCUT 5,000 unit Q8H RAUL Administration Sodium Chloride 1,000 mls @ 100 mls/hr 06/30/25 00:15 06/30/25 00:33 Sodium Chloride 0.9% IV 100 mls/hr .Q10H RAUL Administration Insulin Glargine 20 unit 06/30/25 08:05 06/30/25 08:28 Insulin Glargine 100 Units/1 Ml SUBCUT 20 unit DAILY RAUL Administration Pantoprazole Sodium 40 mg 06/30/25 05:00 06/30/25 04:[address] 40 Mg Tablet PO 40 mg DAILY RAUL Administration PFSH Acute 2 PFSH: Medical History (Updated 06/30/25 @ 10:54 by Harsha Ferguson MD) Hypertension Type 2 diabetes mellitus failed oral in past Diabetic neuropathy Depression Surgical History History of lung surgery drain tube placement 2017 Family History Father Heart disease Social History Smoking and tobacco/nicotine status: current every day tobacco/nicotine user cigarettes Packs smoked per day: 1 Quit status (tobacco/nicotine): considering quitting Vitals/I&O/Wt Last Vital Signs Temp 97.7 F 06/30/25 08:14 Pulse 95 06/30/25 08:40 Resp 18 06/30/25 08:14 BP 167/90 06/30/25 08:40 Pulse Ox 98 06/30/25 08:14 O2 Del Method Room Air 06/30/25 08:14 06/29/25 06/30/25 06/30/25 22:59 06:59 14:59 Intake Total 1999 700 / 2700 480 / 480 Output Total 500 / 500 Balance 1999 200 / 2200 480 / 480 Weight last 48 hrs Weight 68.13 kg Weight 65.317 kg Physical Exam 2 Narrative: Patient comfortable in bed no apparent distress. Vital signs noted blood pressure elevated. HEENT normocephalic atraumatic. Neck is supple no JVP no carotid bruits. Lungs are clear to auscultation. Heart is regular no rubs or gallops. Abdomen is soft nontender nondistended positive bowel sounds. Extremities no edema. Neuro awake alert oriented x 3. Data 06/29/25 18:46 06/30/25 05:33 Micro: Microbiology 06/29/25 18:46 Blood Culture - Preliminary Blood SPECIMEN COLLECTED 06/29/25 18:46 Blood Culture - Preliminary Blood SPECIMEN COLLECTED A&P Assessment and plan 1. TRISHA (acute kidney injury): Plan: 60-year-old man with history of diabetes, hypertension, and depression. Patient presented to his physicians office yesterday hypotensive. Patient was sent to the emergency room was found to have acute kidney injury with a creatinine 4.9 mg/dL that is improving. Patient's urinalysis shows calcium oxalate crystals hyaline cast. Urine mucus 2+. Patient was started with IV fluids and renal functions improving. Patient had renal ultrasound this morning showing right kidney 9.9 cm left 11.1 cm large prostate. No hydronephrosis. 1. Acute kidney injury likely prerenal azotemia. Hyponatremia improved. Creatinine better from 4.9-2.1. Calcium improved. Abnormality found left of T12 on CT scan please have outpatient follow-up. 2. Urinalysis does not appear consistent with UTI. I do not know if the patient had antibiotics prior to this. Further antibiotics as per medicine. 3. Hypertension will restart amlodipine. Will decrease the dose of IV fluids. From a renal perspective if repeat labs are stable or improving can be discharged with outpatient follow-up. Patient was seen and examined using audiovisual equipment with the aid of a nurse. This was a telehealth visit and the patient consented to telehealth. PDMP PDMP Reviewed: Not Reviewed Consult Attestations 2 Medical Necessity Statement: Improving acute kidney injury Time Spent in Patient Care: Greater than 35 minutes (>than 50% of time spent in counselling and/or direct pt care on unit) . Coding Level of Care Code [facility] Diagn[facility] TRISHA (acute kidney injury) N17.9
[2025-06-30 11:32] LABS: Uric Acid 7.2 mg/dL (3.4-7.0)
--- NOTE | 2025-06-30 12:38 | P.PN_ITS ---
Subjective 2 Subjective: Patient was seen this morning, currently alert oriented x 3, following all commands, no fevers, chills, cough, no flank pain Vitals/I&O/Wt Last Vital Signs Temp 98.1 F 06/30/25 12:14 Pulse 96 06/30/25 12:14 Resp 16 06/30/25 12:14 BP 141/73 06/30/25 12:14 Pulse Ox 94 06/30/25 12:14 O2 Del Method Room Air 06/30/25 12:14 06/29/25 06/30/25 06/30/25 22:59 06:59 14:59 Intake Total 1999 700 / 2700 1959 Output Total 500 / 500 Balance 1999 200 / 2200 1959 Weight last 48 hrs Weight 68.13 kg Weight 65.317 kg Physical Exam 2 Const: COMMON NORMALS: no acute distress and patient oriented x3 Resp: COMMON NORMALS: normal respiratory effort, No retractions, No use of accessory muscles and clear to auscultation bilaterally AUSCULTATION: clear to auscultation bilaterally Cardio: COMMON NORMALS: regular rate, regular rhythm, S1 normal heart sound present and S2 normal heart sound present RATE: regular rate RHYTHM: r egular rhythm HEART SOUNDS: S1 normal heart sound present and S2 normal heart sound present GI: COMMON NORMALS: Normal to inspection, nondistended, normoactive bowel sounds present and non-tender Extremity: COMMON NORMALS: no pedal edema Neuro: COMMON NORMALS: patient oriented x3 Psych: COMMON NORMALS: mental status grossly normal Data 06/29/25 18:46 06/30/25 05:33 Micro: Microbiology 06/29/25 18:46 Blood Culture - Preliminary Blood SPECIMEN COLLECTED 06/29/25 18:46 Blood Culture - Preliminary Blood SPECIMEN COLLECTED A&P Assessment and plan 1. ATN (acute tubular necrosis): 2. Dehydration: 3. Acute renal failure: 4. Hypotension: 5. Simple chronic bronchitis: 6. Hypertension: 7. Type 2 diabetes mellitus: Plan: Acute kidney injury - IV fluids - Monitor urine output monitor creatinine - Renal ultrasound No significant evidence of UTI - Antibiotics discontinued Dehydration - IV fluids Type 2 diabetes mellitus, Lantus 20 units subcut daily, low-dose insulin sliding scale GI and DVT prophylaxis in place Full code PDMP PDMP Reviewed: Not Reviewed Attestations 2 Medical Necessity Statement*: Patient requires admission for TRISHA, dehydration Diagnoses ATN (acute tubular necrosis) N17.0 Dehydration E86.0 Acute renal failure N17.9 Hypotension I95.9 Simple chronic bronchitis J41.0 COPD type: chronic bronchitis Chronic bronchitis type: simple Hypertension I10 Type 2 diabetes mellitus E11.9
[2025-06-30 15:10] LABS: Glucose Urine UA Negative (Normal); Nitrate Urine Negative (Negative); Specific Gravity, Urine 1.020 (1.005-1.030)
[2025-06-30 15:22] LABS: Potassium, Radom Urine 23 mmol/L; Urine Random Chloride 84 mmol/L; Urine Random Sodium 78 mmol/L
[2025-07-01 04:00] VITALS: BP 152/74; PULSE 77; RESP 17; TEMP 36.6; O2SAT 96
[2025-07-01 06:00] VITALS: PULSE 97
[2025-07-01] MEDS: heparin 5,000 unit/mL INJ 1 mL 5000 UNIT SUBCUT ×2 (06:10→11:55)
[2025-07-01] MEDS: insulin glargine 100 units/1 mL 20 UNIT SUBCUT (06:11)
[2025-07-01 06:17] LABS: Alanine Aminotransferase 18 U/L (0-41); Albumin Level 3.5 g/dL (3.5-5.2); Alkaline Phosphatase 59 U/L (40-130); Anion Gap 11.9 (5-19); Aspartate Amino Transferase 17 U/L (0-40); Blood Urea Nitrogen 15 mg/dL (8-23); Calcium 8.2 mg/dL (8.5-10.5); Carbon Dioxide 27 mmol/L (22-29); Chloride 108 mmol/L (98-107); Creatinine Clr Calc Pharmacy 109.9614; Globulin 2.2 g/dL (1.3-4.6); Glucose 142 mg/dL (65-115); Magnesium 2.1 mg/dL (1.7-2.3); Osmolality Calculated 299 mOsm/kg (285-295); Potassium 3.9 mmol/L (3.5-5.1); Sodium 143 mmol/L (136-145); Total Protein 5.7 g/dL (6.6-8.7)
[2025-07-01 07:52] VITALS: BP 171/82; PULSE 71; RESP 16; TEMP 36.6; O2SAT 99
--- NOTE | 2025-07-01 09:12 | P.PN_ITS ---
Subjective 2 Subjective: Patient was seen and examined. Patient is feeling better no nausea vomiting shortness of breath chest pain headaches. Patient wants go home. No diarrhea. Medications: Reviewed: Yes Medication Review Details: Current Medications Al Hydrox/Mg Hydrox/Simethicone (Zmio-Chy-Xihzoqizs-Macrina 30 Ml Udc) 30 ml PO Q4H PRN PRN Reason: INDIGESTION Docusate Sodium (Docusate Sodium 100 Mg Capsule) 100 mg PO BID [facility] Last Admin: 07/01/25 06:10 Dose: 100 mg Glucagon (Glucagon 1 Mg/Ml Kit 1 Ml) 1 mg IM ONCE PRN; Protocol PRN Reason: Adult Acute Hypoglycemia Nursing Prot. Heparin Sodium (Porcine) (Heparin 5,000 Unit/Ml Inj 1 Ml) 5,000 unit SUBCUT Q8H [facility] Last Admin: 07/01/25 06:10 Dose: 5,000 unit Sodium Chloride (Sodium Chloride 0.9%) 1,000 mls @ 50 mls/hr IV .Q20H [facility] Last Admin: 06/30/25 20:44 Dose: 50 mls/hr Dextrose (D5w) 500 mls @ 0 mls/hr IV ONCE PRN; Protocol PRN Reason: Adult Acute Hypoglycemia Prot Dextrose (D10w) 125 mls @ 750 mls/hr IV PRN PRN; Protocol PRN Reason: Adult Acute Hypoglycemia Nursing Protocol Dextrose (D10w) 250 mls @ 1,000 mls/hr IV PRN PRN; Protocol PRN Reason: Adult Acute Hypoglycemia Nursing Protocol Insulin Glargine (Insulin Glargine 100 Units/1 Ml) 20 unit SUBCUT DAILY [facility] Last Admin: 07/01/25 06:11 Dose: 20 unit Insulin Human Lispro (Insulin Lispro 100 Unit/1 Ml) 0 unit SUBCUT WM&BEDTIME [facility]; Protocol Last Admin: 07/01/25 06:51 Dose: Not Given Morphine Sulfate (Morphine 4 Mg/Ml Sdv 1 Ml) 4 mg IVP Q4H PRN PRN Reason: SEVERE PAIN Ondansetron HCl (Ondansetron 2 Mg/Ml Sdv 2 Ml) 4 mg IVP Q8H PRN PRN Reason: vomiting, or N/V if npo Pantoprazole Sodium (Pantoprazole Dr 40 Mg Tablet) 40 mg PO DAILY [facility] Last Admin: 07/01/25 06:10 Dose: 40 mg Senna (Sennosides 8.6 Mg Tablet) 17.2 mg PO BEDTIME [facility] Last Admin: 06/30/25 20:42 Dose: Not Given Tamsulosin HCl (Tamsulosin 0.4 Mg Capsule) 0.4 mg PO DAILY [facility] Last Admin: 07/01/25 06:10 Dose: 0.4 mg Vitals/I&O/Wt Last Vital Signs Temp 97.9 F 07/01/25 07:52 Pulse 71 07/01/25 07:52 Resp 16 07/01/25 07:52 BP 171/82 07/01/25 07:52 Pulse Ox 99 07/01/25 07:52 O2 Del Method Room Air 07/01/25 07:52 06/30/25 07/01/25 07/01/25 22:59 06:59 14:59 Intake Total 948.333 / 2908.333 200 / 3108.333 600 / 600 Output Total 300 / 300 450 / 450 Balance 648.333 / 2608.333 200 / 2808.333 150 / 150 Weight last 48 hrs Weight 67.948 kg Weight 68.13 kg Weight 65.317 kg Physical Exam 2 Narrative: Patient comfortable in bed no apparent distress. Vital signs noted blood pressure elevated. HEENT normocephalic atraumatic. Neck is supple no JVP no carotid bruits. Lungs are clear to auscultation. Heart is regular no rubs or gallops. Abdomen is soft nontender nondistended positive bowel sounds. Extremities no edema. Neuro awake alert oriented x 3. Data 06/29/25 18:46 07/01/25 05:11 Micro: Microbiology 06/29/25 18:46 Blood Culture - Preliminary Blood NEGATIVE TO DATE 06/29/25 18:46 Blood Culture - Preliminary Blood NEGATIVE TO DATE A&P Assessment and plan 1. TRISHA (acute kidney injury): Plan: 60-year-old man with history of diabetes, hypertension, and depression. Patient presented to his physicians office yesterday hypotensive. Patient was sent to the emergency room was found to have acute kidney injury with a creatinine 4.9 mg/dL that is improving. Patient's urinalysis shows calcium oxalate crystals hyaline cast. Urine mucus 2+. Patient was started with IV fluids and renal functions improving. Patient had renal ultrasound this morning showing right kidney 9.9 cm left 11.1 cm large prostate. No hydronephrosis. 1. Acute kidney injury likely prerenal azotemia. Hyponatremia improved. Creatinine . Calcium improved. Abnormality found left of T12 on CT scan please have outpatient follow-up. 2. Replace phosphorus 3. Hypertension will restart amlodipine. Will d/c IVF renal okay for d/c. Patient was seen and examined using audiovisual equipment with the aid of a nurse. This was a telehealth visit and the patient consented to telehealth. PDMP PDMP Reviewed: Not Reviewed Attestations 2 Medical Necessity Statement*: per medical team Time Spent in Patient Care: 16 - 35 minutes (>than 50% of time sp ent in counselling and/or direct pt care on unit) . Coding Level of Care Code Acute Code for g Fwd Diagnoses TRISHA (acute kidney injury) N17.9
[2025-07-01] MEDS: potassium phosphate (mEq K) 20 MEQ in sodium chloride 0.9% (100 ml) 104.5454 ML 27.25 MEQ IV ×2 (09:58→12:14)
[2025-07-01 11:14] VITALS: BP 164/80; PULSE 76; RESP 17; TEMP 36.5; O2SAT 98
--- NOTE | 2025-07-01 12:42 | PM.DCS ---
Discharge Providers Date of Admission: 06/29/25 20:04 Date of Discharge: July 01, 2025 Attending Provider at Admission: Katlin Caruso MD Attending Provider at Discharge: Jhon Connor MD Primary Care Provider: Nuzhat Bacon MD Diagnoses at Discharge Discharge Diagnosis 1. TRISHA (acute kidney injury): Reason for Visit Reason for Visit: trouble urinating Hospital Course Hospital Course This is a 60-year-old male with a past medical history of hypertension, hyperlipidemia, type 2 diabetes mellitus who presents to [facility] for acute kidney injury Patient was admitted to [facility] for acute kidney injury, received IV fluids, nephrology consulted, overall clinically improved, discharged on instructions to drink plenty of electrolyte balanced fluids, recheck creatinine through outpatient physician For enlarged prostate, BPH, discharged on Flomax with close follow-up with urology as outpatient Physical Exam Const: COMMON NORMALS: no acute distress and patient oriented x3 Resp: COMMON NORMALS: normal respiratory effort, No retractions, No use of accessory muscles and clear to auscultation bilaterally AUSCULTATION: clear to auscultation bilaterally Cardio: COMMON NORMALS: regular rate, regular rhythm, S1 normal heart sound present and S2 normal heart sound present RATE: regular rate RHYTHM: regular rhythm HEART SOUNDS: S1 normal heart sound present and S2 normal heart sound present GI: COMMON NORMALS: Normal to inspection, nondistended, normoactive bowel sounds present and non-tender Extremity: COMMON NORMALS: no pedal edema Neuro: COMMON NORMALS: patient oriented x3 Psych: COMMON NORMALS: mental status grossly normal Discharge Data Studies Completed and Pending Completed Studies During Hospitalization Category Date Time Status CT abdomen pelvis wo con [id number] Stat Cat Scan 06/29/25 19:28 Completed US renal BI* [id number] Routine Ultrasound 06/30/25 08:05 Completed Pending at discharge Category Date Time Status Cardiac Stress Test MIBI [Sestamibi Stress Test Request Exams 06/30/25 00:13 Stop Req ] Routine Blood Culture Stat Lab 06/29/25 18:46 Results Comprehensive Metabolic Panel AM LABS Lab 07/02/25 04:00 Ordered Comprehensive Metabolic Panel AM LABS Lab 07/03/25 04:00 Ordered Phosphorus AM LABS Lab 07/02/25 04:00 Ordered Phosphorus AM LABS Lab 07/03/25 04:00 Ordered Radiology Impressions Abdomen/Pelvis CT 06/29/25 19:28 IMPRESSION: No acute localized inflammatory abnormalities present abdomen and pelvis Findings of a calcified nodule in the central canal towards the left at T12 causes significant central canal stenosis further workup recommended with dedicated thoracic spine imaging recommended and such as meningioma can not be excluded and warrants further workup to Renal Ultrasound 06/30/25 08:05 IMPRESSION: 1. No hydronephrosis in either kidney. 2. Bladder is normal in appearance. 3. Enlarged prostate measuring 5.8 x 3.5 x 4.6 cm. Recommend correlation PSA. Laboratory Results WBC 12.94 10^3/uL (3.29-11.43) H 06/29/25 18:46 RBC 4.85 10^6/uL (3.85-5.65) 06/29/25 18:46 Hgb 15.50 g/dL (11.27-16.99) 06/29/25 18:46 Hct 43.0 % (37-53) 06/29/25 18:46 MCV 88.7 fl (82-101) 06/29/25 18:46 MCH 32.0 pg (27-33) 06/29/25 18:46 MCHC 36.0 g/dL (30-55) 06/29/25 18:46 RDW 12.2 % (12.1-15.1) 06/29/25 18:46 Plt Count 252 10^3/cmm (157-399) 06/29/25 18:46 MPV 11.5 fL (7.4-10.4) H 06/29/25 18:46 Neut % (Auto) 72.2 % 06/29/25 18:46 Lymph % (Auto) 19.9 % 06/29/25 18:46 Story % (Auto) 7.1 % 06/29/25 18:46 Eos % (Auto) 0.3 % 06/29/25 18:46 Baso % (Auto) 0.2 % 06/29/25 18:46 Neut # (Auto) 9.35 10^3/uL (1.8-7.7) H 06/29/25 18:46 Lymph # (Auto) 2.6 10^3/uL (0.8-4.8) 06/29/25 18:46 Story # (Auto) 0.9 10^3/uL (0.2-0.9) 06/29/25 18:46 Eos # (Auto) 0.0 10^3/uL (0.0-0.8) 06/29/25 18:46 Baso # (Auto) 0.0 10^3/uL (0.0-0.1) 06/29/25 18:46 Nucleated RBC % (auto) 0 % 06/29/25 18:46 Nucleated RBCs # 0.0 /100WBC 06/29/25 18:46 Sodium 143 mmol/L (136-145) 07/01/25 05:11 Potassium 3.9 mmol/L (3.5-5.1) 07/01/25 05:11 Chloride 108 mmol/L (98-107) H 07/01/25 05:11 Carbon Dioxide 27 mmol/L (22-29) 07/01/25 05:11 Anion Gap 11.9 (5-19) 07/01/25 05:11 BUN 15 mg/dL (8-23) 07/01/25 05:11 Creatinine 0.7 mg/dL (0.7-1.2) 07/01/25 05:11 GFR Calculation 114.3 mL/min (90-130) 07/01/25 05:11 Glucose 142 mg/dL (65-115) H 07/01/25 05:11 POC Glucose 219 mg/dL (70-110) H 07/01/25 10:26 Calculated Osmolality 299 mOsm/kg (285-295) H 07/01/25 05:11 Lactic Acid 1.6 mmol/L (0.5-2.2) 06/29/25 18:46 Uric Acid 7.2 mg/dL (3.4-7.0) H 06/30/25 05:33 Calcium 8.2 mg/dL (8.5-10.5) L 07/01/25 05:11 Phosphorus 1.2 mg/dL (2.5-4.5) L D 07/01/25 05:11 Magnesium 2.1 mg/dL (1.7-2.3) 07/01/25 05:11 Total Bilirubin 0.3 mg/dL (0.15-1.2) 07/01/25 05:11 AST 17 U/L (0-40) 07/01/25 05:11 ALT 18 U/L (0-41) 07/01/25 05:11 Alkaline Phosphatase 59 U/L (40-130) 07/01/25 05:11 Creatine Kinase 323 U/L (39-308) H* 06/30/25 05:33 Total Protein 5.7 g/dL (6.6-8.7) L 07/01/25 05:11 Albumin 3.5 g/dL (3.5-5.2) 07/01/25 05:11 Globulin 2.2 g/dL (1.3-4.6) 07/01/25 05:11 Urine Color Yellow (Yellow) 06/30/25 14:50 Urine Appearance Clear (CLEAR) 06/30/25 14:50 Urine pH 5.5 (5-7) 06/30/25 14:50 Ur Specific Allred 1.020 (1.005-1.030) 06/30/25 14:50 Urine Protein Negative (Negative) 06/30/25 14:50 Urine Glucose (UA) Negative (Normal) 06/30/25 14:50 Urine Ketones Negative (Negative) 06/30/25 14:50 Urine Blood Negative (Negative) 06/30/25 14:50 Urine Nitrate Negative (Negative) 06/30/25 14:50 Urine Bilirubin Negative (Negative) 06/30/25 14:50 Urine Urobilinogen 0.2 mg/dL (Negative) 06/30/25 14:50 Ur Leukocyte Esterase Negative (Negative) 06/30/25 14:50 Urine RBC 0-2 /hpf (0-2) 06/30/25 14:50 Urine WBC 0-5 /hpf (0-5) 06/30/25 14:50 Ur Squamous Epith Cells 0-5 /hpf (0-5) 06/30/25 14:50 Calcium Oxalate Crystal 25-40 /hpf H 06/30/25 01:55 Amorphous Sediment Not Reportable 06/30/25 14:50 Urine Bacteria None seen /hpf (NONE) 06/30/25 14:50 Hyaline Casts 1.21 /lpf 06/30/25 14:50 Urine Mucus 2+ /hpf 06/30/25 01:55 Ur Random Sodium 78 mmol/L 06/30/25 14:50 Ur Random Potassium 23 mmol/L 06/30/25 14:50 Ur Random Chloride 84 mmol/L 06/30/25 14:50 Urine Creatinine 121 mg/dL (39-259) 06/30/25 14:50 Vitals Last Vital Signs Temp 97.7 F 07/01/25 11:14 Pulse 76 07/01/25 11:14 Resp 17 07/01/25 11:14 BP 164/80 07/01/25 11:14 Pulse Ox 98 07/01/25 11:14 O2 Del Method Room Air 07/01/25 11:14 Discharge Plan Discharge Patient Disposition: Home Condition: Stable Prescriptions: New amlodipine 5 mg Tablet 5 mg PO DAILY 30 Days Qty: 30 0RF tamsulosin 0.4 mg Capsule 0.4 mg PO DAILY 30 Days Qty: 30 0RF Continued albuterol sulfate 90 mcg/actuation HFA aerosol inhaler 2 puff inhalation QID PRN (Reason: shortness of breath or wheezing) 30 Days Qty: 18 5RF gabapentin 400 mg capsule 400 mg PO TID 30 Days Qty: 90 6RF lisinopril 40 mg tablet 40 mg PO DAILY 30 Days Qty: 30 6RF risperidone 4 mg tablet 4 mg PO BEDTIME risperidone 2 mg tablet 2 mg PO DAILY PRN (Reason: Restless Leg(S)) bupropion HCl 200 mg tablet sustained-release 12 hr 200 mg PO BID Rx Instructions: 8am and 3pm tizanidine 2 mg tablet 2 mg PO Q8H PRN (Reason: Muscle Spasticity) Changed metoprolol succinate 100 mg tablet extended release 24 hr 50 mg PO DAILY 30 Days Qty: 30 6RF insulin glargine [Lantus Solostar U-100 Insulin] 100 unit/mL (3 mL) insulin pen 20 unit SUBCUT QAM Qty: 15 0RF Rx Instructions: 340 B plan No Action (DME) OneTouch Ultra Test Strip See Rx Instructions .ROUTE .COMPLEX Qty: 100 11RF Dose Instruction: As directed Rx Instructions: Use to test blood sugar three times daily 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[employer] OK for DC: Cardiology Discharge Order = DC NOW: Discharge Order (Routine); Ordered 07/01/25 Ordered By: Jhon Connor Referrals: Delon Casper [Referring, Urology] - 7-10 days Referral Note: Nuzhat Alba MD [Primary Care Provider, Family Practice] Discharge Diet: Cardiac Discharge Activity: Resume usual activity Patient Instructions: Opioid Safety, Patient Portal & Tessa Instructions Activity Restrictions/Additional Instructions: -follow up with primary care - Recheck creatinine in 1 week - For enlarged prostate, follow-up with urology, take Flomax Discharge Attestations Time Spent in Discharge Care*: greater than 30 min Quality Metrics Clinical Quality Measures [ No reported AMI, CVA or VTE this stay] Coding Level of Care Code 49454 Total time (in minutes) for Discharge: 45 Diagnoses TRISHA (acute kidney injury) N17.9
[2025-07-01 14:46] VITALS: BP 164/80; PULSE 76; RESP 17; TEMP 36.5; O2SAT 98
--- NOTE | 2025-07-01 14:47 | PC.NURSE ---
Discharge Note Patient discharged to home via private vehicle accompanied by family member. Discharge instructions reviewed with patient and/or telesales representative. Mobile pharmacy medications and/or prescriptions provided. Belongings/home medications returned.
== END 2025-07-01 14:48 | disposition home or self-care (01) | DRG 683 ==
LOC: ER 20:55 → MEDSURG 20:55
PROVIDERS: Internal Medicine Nephrology; Admitting Provider Internal Medicine; Emergency Provider Emergency Medicine; PCP Family Medicine; Visit Provider Family Medicine
DX: N17.0 Acute kidney failure with tubular necrosis (principal); E87.1 Hypo-osmolality and hyponatremia; N39.0 Urinary tract infection, site not specified; I10 Essential (primary) hypertension; E78.5 Hyperlipidemia, unspecified; E11.40 Type 2 diabetes mellitus with diabetic neuropathy, unspecified; N40.0 Benign prostatic hyperplasia without lower urinary tract symptoms; F32.A Depression, unspecified; J41.0 Simple chronic bronchitis; F17.210 Nicotine dependence, cigarettes, uncomplicated; E86.0 Dehydration; I95.9 Hypotension, unspecified; E83.39 Other disorders of phosphorus metabolism; Z79.4 Long term (current) use of insulin
CPT/HCPCS: 36415; 36416; 51798; 74176; 76770; 80048; 80053; 81001; 82436; 82550; 82570; 82962; 83605; 83735; 84100; 84133; 84300; 84550; 85025; 87040; 96361; 96372; 96374; 99285; J0696; J1644; J1815; J7030; J7040; J9999

== ENCOUNTER → 2025-07-06 10:12 | Outpatient (BNVA) | payer MEDICARE, SELFPAY | PROVIDERS: PCP Family Medicine; Visit Provider Family Medicine | DX: E11.9 Type 2 diabetes mellitus without complications (principal); I10 Essential (primary) hypertension; E11.42 Type 2 diabetes mellitus with diabetic polyneuropathy; Z79.4 Long term (current) use of insulin | CPT/HCPCS: 80048; 83036 ==